=== PATIENT | female | born 1995 | race African-American/Black ===

== ENCOUNTER 2020-05-28 18:03 | Emergency (ER) | payer BC ==
--- NOTE | 2020-05-28 19:32 | EDM.PDOC ---
ED HPI GENERAL MEDICAL PROBLEM - General Chief Complaint: [employer] Problem Stated Complaint: [facility] Time Seen by Provider: 05/28/20 18:35 Source of Information: Reports: Patient History Limitations: Reports: No Limitations - History of Present Illness INITIAL COMMENTS - FREE TEXT/NARRATIVE: Patient is a 24-year-old female [facility] with complaints of acute left pelvic pain. She describes the pain as a sharp stabbing sensation. She states that the pain came out of nowhere. She was not doing anything exertional. She did have some nausea associated with this but no vomiting. She called EMS. States that pain improved significantly after about 30 minutes. The area is edge glue machine tender to palpation but not significantly painful at this time. Patient is 17 weeks . Denies any vaginal discharge or bleeding. She had an appointment with her [employer], Dr. Garcia, 2 days ago and said that everything has been going well. States that she has not felt the baby move so far this . She did have an early ultrasound completed and everything at that time was found to be normal. She is currently scheduled for her 20-week ultrasound on 17 June. Eyes any fever, chills, flank pain, dysuria, vomiting, or diarrhea. abd Pain Score (Numeric/FACES): 2 - Related Data Allergies Allergy/AdvReac Type Severity Reaction Status Date / Time No Known Allergies Allergy Verified 05/28/20 18:07 Home Meds: Home Meds Vits #93/Iron Fum/FA [ Formula Tablet] 1 tab PO DAILY 05/28/20 [History] Past Medical History - Past Health History Medical/Surgical History: Denies Medical/Surgical History [employer] History: Reports: Social & Family History - Tobacco Use Smoking Status *Q: Never Smoker - Recreational Drug Use Recreational Drug Use: No ED ROS GENERAL - Review of Systems Review Of Systems: See Below Constitutional: Reports: No Symptoms. Denies: Fever, Chills, Weakness HEENT: Reports: No Symptoms Respiratory: Reports: No Symptoms Cardiovascular: Reports: No Symptoms Endocrine: Reports: No Symptoms GI/Abdominal: Reports: No Symptoms : Reports: Other (left pelvic pain) Musculoskeletal: Reports: No Symptoms Skin: Reports: No Symptoms Neurological: Reports: No Symptoms Psychiatric: Reports: No Symptoms Hematologic/Lymphatic: Reports: No Symptoms Immunologic: Reports: No Symptoms ED EXAM - Physical Exam Exam: See Below General Appearance: Alert, WD/WN, No Apparent Distress Respiratory/Chest: No Respiratory Distress, Lungs Clear, Normal Breath Sounds, No Accessory Muscle Use, Chest Non-Tender Cardiovascular: Normal Peripheral Pulses, Regular Rate, Rhythm, No Edema, No Gallop, No JVD, No Murmur, No Rub GI/Abdominal Exam: Normal Bowel Sounds, Soft, No Organomegaly, No Distention, No Abnormal Bruit, No Mass, Pelvis Stable, Tender (mild left pelvic tenderness) Neurological: Alert, Oriented, CN II-XII Intact, Normal Cognition, Normal Gait, Normal Reflexes, No Motor/Sensory Deficits Psychiatric: Normal Affect, Normal Mood Skin Exam: Warm, Dry, Intact, Normal Color, No Rash Course - Vital Signs Last Recorded V/S: Last Vital Signs Temp 98 F 05/28/20 18:05 Pulse 84 05/28/20 18:05 Resp 19 05/28/20 18:05 BP 107/56 L 05/28/20 18:05 Pulse Ox 99 05/28/20 18:05 - Orders/Labs/Meds Labs: Laboratory Tests 05/28/20 05/28/20 05/28/20 Range/Units 19:21 19:21 20:19 WBC 9.43 (3.98-10.04) K/mm3 RBC 4.26 (3.98-5.22) M/mm3 Hgb 12.8 (11.2-15.7) gm/dl Hct 39.4 (34.1-44.9) % MCV 92.5 (79.4-94.8) fl MCH 30.0 (25.6-32.2) pg MCHC 32.5 (32.2-35.5) g/dl RDW Std Deviation 45.4 (36.4-46.3) fL Plt Count 215 (182-369) K/mm3 MPV 9.9 (9.4-12.3) fl Neut % (Auto) 84.2 H (34.0-71.1) % Lymph % (Auto) 9.7 L (19.3-51.7) % [place] % (Auto) 5.5 (4.7-12.5) % Eos % (Auto) 0.1 L (0.7-5.8) Baso % (Auto) 0.1 (0.1-1.2) % Neut # (Auto) 7.94 H (1.56-6.13) K/mm3 Lymph # (Auto) 0.91 L (1.18-3.74) K/mm3 [place] # (Auto) 0.52 H (0.24-0.36) K/mm3 Eos # (Auto) 0.01 L (0.04-0.36) K/mm3 Baso # (Auto) 0.01 (0.01-0.08) K/mm3 Manual Slide Review Abnormal smear Sodium 139 (136-145) mEq/L Potassium 3.9 (3.5-5.1) mEq/L Chloride 103 (98-107) mEq/L Carbon Dioxide 26 (21-32) mEq/L Anion Gap 13.9 (5-15) BUN 8 (7-18) mg/dL Creatinine 0.6 (0.55-1.02) mg/dL Est Cr Clr Drug Dosing 135.35 mL/min Estimated GFR (MDRD) > 60 (>60) mL/min BUN/Creatinine Ratio 13.3 L (14-18) Glucose 79 (74-106) mg/dL Calcium 9.5 (8.5-10.1) mg/dL Total Bilirubin 0.3 (0.2-1.0) mg/dL AST 31 (15-37) U/L ALT 35 (14-59) U/L Alkaline Phosphatase 65 (46-116) U/L C-Reactive Protein 0.7 (<1.0) mg/dL Total Protein 7.6 (6.4-8.2) g/dl Albumin 3.1 L (3.4-5.0) g/dl Globulin 4.5 gm/dL Albumin/Globulin Ratio 0.7 L (1-2) HCG, Quant 65978.0 mIU/mL Urine Color Light yellow (Yellow) Urine Appearance Clear (Clear) Urine pH 8.0 (5.0-8.0) Ur Specific [place] 1.020 (1.005-1.030) Urine Protein Negative (Negative) Urine Glucose (UA) Negative (Negative) Urine Ketones Negative (Negative) Urine Occult Blood Negative (Negative) Urine Nitrite Negative (Negative) Urine Bilirubin Negative (Negative) Urine Urobilinogen 0.2 (0.2-1.0) Ur Leukocyte Esterase Trace H (Negative) Urine RBC 0-5 (0-5) /hpf Urine WBC 5-10 H (0-5) /hpf Ur Squamous Epith Cells 5-10 H (0-5) /hpf Urine Bacteria Few (FEW) /hpf Urine Mucus Few (FEW) /hpf - Re-Assessments/Exams Free Text/Narrative Re-Assessment/Exam: Patient is a 24-year-old female 17 weeks gestation who presents to the emergency department with acute onset of stabbing left lower pelvic pain. Last approximate 30 minutes and had essentially resolved by the time of my exam. She does have some slight tenderness in that area still but it is not not painful any longer. Denies any vaginal bleeding or discharge. She did have some nausea initially when the pain occurred but this has since resolved as well. I have ordered a CBC, CMP, CRP, urinalysis, quantitative hCG, and a OB ultrasound. 05/28/20 20:39 Hematology was grossly unremarkable. hCG was appropriately elevated at 21,823. Urinalysis showed trace leukocyte esterase, 5-10 WBCs, 5-10 squamous epithelials suggestive likely contamination. Ultrasound revealed a single viable intrauterine gestation at 17 weeks 0 days. There is no abnormalities of gestation or maternal pelvis noted. Called and spoke with patient's [employer], Dr. Garcia. She had no further recommendations for work-up for this patient. She did not recommend that we start antibiotics for her urine at this time. We will send urine for culture and begin antibiotics if indicated. Patient is anxious to be discharged, feels good, and has had no recurrence of pain. We will let her go home at this time with instructions to return if she should experience recurrence of pain or any other symptoms of concern. Discharge instructions as documented. Departure - Departure Time of Disposition: 20:43 Disposition: Home, Self-Care 01 Condition: Good Clinical Impression: Pelvic pain - Discharge Information *PRESCRIPTION DRUG MONITORING PROGRAM REVIEWED*: No *COPY OF PRESCRIPTION DRUG MONITORING REPORT IN PATIENT IOANA: No Instructions: Pelvic Pain, Female, [id number] Referrals: Jany Hernandez MD [Primary Care Provider] - Forms: ED Department Discharge Additional Instructions: You were seen in the emergency department this evening for acute left pelvic pain that lasted about 30 minutes. Your work-up included blood work, urinalysis, and a pelvic ultrasound. Your work-up was found to be overall normal. The ultrasound showed a single intrauterine gestation measuring about 17 weeks. There was a small amount of bacteria present in your urine which is likely contamination, however this has been sent for culture. If this should grow to bacteria requiring treatment with antibiotics, you will be notified and a prescription will be called in. Recommend that you rest and take it easy for the rest of the evening. Make sure you are getting adequate amount of fluid. If you should experience a recurrence of pain or any new or worsening symptoms of concern, please not hesitate to return to the emergency department for reevaluation. Sepsis Event Note (ED) - Evaluation Sepsis Screening Result: No Definite Risk
== END 2020-05-28 20:52 | disposition home or self-care (01) ==
LOC: JD.ED 18:03
DX: O99.891 Other specified diseases and conditions complicating pregnancy (principal); R10.2 Pelvic and perineal pain; Z3A.17 17 weeks gestation of pregnancy
CPT/HCPCS: 36415; 76815; 80053; 81001; 84702; 85025; 86140; 87086; 87088; 99285-25

== ENCOUNTER 2020-11-10 07:15 | Inpatient (IN) | payer BC ==
[2020-11-10] MEDS ORDERED: Sodium Chloride 0.9% 10 ML Syringe FLUSH PRN (07:21)
[2020-11-10] MEDS ORDERED: Nalbuphine 10 MG/1 ML Vial IVPUSH PRN (07:21)
[2020-11-10] MEDS ORDERED: Ondansetron 4 MG/2 ML SDV IVPUSH PRN ×2 (07:21→11:28)
[2020-11-10] MEDS ORDERED: Misoprostol 25 MCG (1/4 of 100 MCG) Tab VAG PRN (07:26)
[2020-11-10] MEDS ORDERED: Oxytocin/Lactated Ringers 10 UNIT/1,000 ML BAG IV SCH ×2 (07:30)
--- NOTE | 2020-11-10 07:35 | PCM.LDHP ---
L&D History of Present Illness - General Date of Service: 11/10/20 Admit Problem/Dx: Patient Status Order with Admit Dx/Problem 11/10/20 07:22 Patient Status [ADT] Routine Admission Diagnosis/Problem Admission Diagnosis/Problem Normal Source of Information: Patient History Limitations: Reports: No Limitations - History of Present Illness Introduction:: 25 y/o at 40 6/7 wks presents for post dates IOL. Doing well today. 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 Para: 0 Social & Family History - Tobacco Use Tobacco Use Status *Q: Never Tobacco User - Alcohol Use Alcohol Use History: No - Recreational Drug Use Recreational Drug Use: No H&P Review of Systems - Review of Systems: Review Of Systems: See Below General: Reports: No Symptoms Pulmonary: Reports: No Symptoms Cardiovascular: Reports: No Symptoms Gastrointestinal: Reports: No Symptoms Genitourinary: Reports: No Symptoms Musculoskeletal: Reports: No Symptoms Neurological: Reports: No Symptoms L&D Exam - Exam Exam: See Below - OB Specific Contraction Intensity: Irritability Movement: Active Heart Tones: Present Heart Tones per Min: 140 Heart Rate (FHR) Variability: Moderate (6-25 bmp) Presentation: Vertex - Lombardo Score Lombardo Score Cervix Position: Posterior Lombardo Score Consistency: Medium Lombardo Score Effacement: 0-30% Lombardo Score Dilation: Closed Lombardo Score Infant's Station: -2 Lombardo Score Total: 2 - Exam General: Alert, Oriented, Cooperative Lungs: Clear to Auscultation, Normal Respiratory Effort Cardiovascular: Regular Rate, Regular Rhythm GI/Abdominal Exam: Soft, Non-Tender Genitourinary: Normal external exam Extremities: Normal Inspection Skin: Warm, Dry, Intact - Patient Data Result Diagrams: 11/10/20 07:29 - Problem List (1) 41 weeks gestation of SNOMED Code(s): 30740777 ICD Code: Z3A.41 - 41 WEEKS GESTATION OF Status: Acute Current Visit: Yes Problem List Initiated/Reviewed/Updated: Yes Orders Last 24hrs: Active Orders 24 hr Category Date Time Status Patient Status [ADT] Routine ADT 11/10/20 07:22 Active Communication Order [RC] ASDIRECTED Care 11/10/20 07:22 Active Communication Order [RC] ASDIRECTED Care 11/10/20 07:22 Active Communication Order [RC] ASDIRECTED Care 11/10/20 07:22 Active Heart Tones [RC] ASDIRECTED Care 11/10/20 07:22 Active Non Stress Test [RC] PER UNIT ROUTINE Care 11/10/20 07:22 Active Notify Provider [RC] ASDIRECTED Care 11/10/20 07:22 Active Notify Provider [RC] PRN Care 11/10/20 07:22 Active Peripheral IV Care [RC] . DIRECTED Care 11/10/20 07:22 Active Up ad Clari [RC] ASDIRECTED Care 11/10/20 07:22 Active Vaginal Exam [RC] ASDIRECTED Care 11/10/20 07:22 Active Vital Signs [RC] ASDIRECTED Care 11/10/20 07:22 Active Regular Diet [DIET] Diet 11/10/20 Breakfast Active CBC W/O DIFF,HEMOGRAM [HEME] Routine Lab 11/10/20 07:21 Ordered CORONAVIRUS COVID-19 YESSY [MOLEC] Stat Lab 11/10/20 07:24 Ordered RAPID PLASMA REAGIN,RPR [CHEM] Routine Lab 11/10/20 07:22 Ordered TYPE AND SCREEN [BBK] Routine Lab 11/10/20 07:21 Ordered Lactated Ringers [Ringers, Lactated] 1,000 ml Med 11/10/20 07:30 Active IV ASDIRECTED Nalbuphine [Nubain] Med 11/10/20 07:21 Active 10 mg IVPUSH Q2H PRN Ondansetron [Zofran] Med 11/10/20 07:21 Active 4 mg IVPUSH Q4H PRN Oxytocin/Lactated Ringers [Pitocin in LR 10 Units/1,000 Med 11/10/20 07:30 Active ML] 10 unit in 1,000 ml IV .CONTINUOUS Oxytocin/Lactated Ringers [Pitocin in LR 10 Units/1,000 Med 11/10/20 07:30 Active ML] 10 unit in 1,000 ml IV TITRATE Sodium Chloride 0.9% [Saline Flush] Med 11/10/20 07:21 Active 10 ml FLUSH ASDIRECTED PRN miSOPROStoL [Cytotec] Med 11/10/20 07:26 Active 25 mcg VAG Q4H PRN Electronic Heart Tones Ext w TOCO [WOMSER] Oth 11/10/20 07:22 Ordered Routine Medication Administration Instruction [OM.PC] Ot 11/10/20 07:30 Ordered ASDIRECTED Peripheral IV Insertion Adult [OM.PC] Routine Ot 11/10/20 07:22 Ordered Medication Orders Oxytocin/Lactated Ringer's (Pitocin In Lr 10 Units/1,000 Ml) 10 unit in 1,000 mls @ 12 mls/hr IV TITRATE MARIA TERESA; Protocol Oxytocin/Lactated Ringer's (Pitocin In Lr 10 Units/1,000 Ml) 10 unit in 1,000 mls @ 500 mls/hr IV .CONTINUOUS MARIA TERESA Lactated Ringer's (Ringers, Lactated) 1,000 mls @ 40 mls/hr IV ASDIRECTED MARIA TERESA Misoprostol (Misoprostol 25 Mcg (1/4 Of 100 Mcg) Tab) 25 mcg VAG Q4H PRN PRN Reason: cervical ripening Nalbuphine HCl (Nalbuphine 10 Mg/1 Ml Vial) 10 mg IVPUSH Q2H PRN PRN Reason: Pain Ondansetron HCl (Ondansetron 4 Mg/2 Ml Sdv) 4 mg IVPUSH Q4H PRN PRN Reason: Nausea/Vomiting Sodium Chloride (Sodium Chloride 0.9% 10 Ml Syringe) 10 ml FLUSH ASDIRECTED PRN PRN Reason: Keep Vein Open Stop: 11/10/20 12:00 Assessment/Plan Comment:: * Labs done * GBS negative * Cytotec to start IOL, Likely pitocin/AROM in time * Pain management per patient preference * Anticipate
[2020-11-10] MEDS ORDERED: ePHEDrine 50 MG/ML SDV IVPUSH PRN (11:28)
[2020-11-10] MEDS ORDERED: fentaNYL 100 MCG/2 ML SDV EPIDUR PRN (11:28)
--- NOTE | 2020-11-10 11:31 | PCM.PREANE ---
Preanesthetic Assessment - Procedure Proposed Procedure: Epidural - Anesthesia/Transfusion/Family Hx Anesthesia History: No Prior Anesthesia Family History of Anesthesia Reaction: No Transfusion History: No Prior Transfusion(s) Intubation History: Unknown - Review of Systems General: No Symptoms Pulmonary: No Symptoms Cardiovascular: No Symptoms Gastrointestinal: No Symptoms Neurological: No Symptoms Other: Reports: None - Physical Assessment NPO Status Date: 11/10/20 NPO Status Time: 12:15 Vital Signs: Last Vital Signs Temp 36.9 C 11/10/20 07:22 Pulse 90 11/10/20 07:22 Resp 15 11/10/20 07:22 BP 115/73 11/10/20 07:22 Pulse Ox 97 11/10/20 07:22 Height: 1.68 m Weight: 82.1 kg ASA Class: 2 Mental Status: Alert & Oriented x3 Airway Class: Mallampati = 2 Dentition: Reports: Normal Dentition, Caries Thyro-Mental Finger Breadths: 3 Mouth Opening Finger Breadths: 3 ROM/Head Extension: Full Lungs: Clear to Auscultation, Normal Respiratory Effort Cardiovascular: Regular Rate, Regular Rhythm, No Murmurs - Lab Values: Laboratory Last Values WBC 6.70 K/mm3 (3.98-10.04) 11/10/20 07:29 RBC 4.26 M/mm3 (3.98-5.22) 11/10/20 07:29 Hgb 12.3 gm/dl (11.2-15.7) 11/10/20 07:29 Hct 39.5 % (34.1-44.9) 11/10/20 07:29 MCV 92.7 fl (79.4-94.8) 11/10/20 07:29 MCH 28.9 pg (25.6-32.2) 11/10/20 07:29 MCHC 31.1 g/dl (32.2-35.5) L 11/10/20 07:29 RDW Std Deviation 46.1 fL (36.4-46.3) 11/10/20 07:29 Plt Count 244 K/mm3 (182-369) 11/10/20 07:29 MPV 9.8 fl (9.4-12.3) 11/10/20 07:29 SARS-CoV-2 RNA (YESSY) Negative (NEGATIVE) 11/10/20 08:05 Blood Type O POSITIVE 11/10/20 07:29 Gel Antibody Screen Negative 11/10/20 07:29 Above labs reviewed and noted and within acceptable ranges to proceed with epidural if desired. 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: - SUBSTANCE USE Tobacco Use Status *Q: Never Tobacco User Second Hand Smoke Exposure: No Recreational Drug Use History: No - HOME MEDS Home Medications: Home Meds Vits #93/Iron Fum/FA [ Formula Tablet] 1 tab PO DAILY 05/28/20 [History] - CURRENT (IN HOUSE) MEDS Current Meds: Current Medications Oxytocin/Lactated Ringer's (Pitocin In Lr 10 Units/1,000 Ml) 10 unit in 1,000 mls @ 12 mls/hr IV TITRATE MARIA TERESA; Protocol Oxytocin/Lactated Ringer's (Pitocin In Lr 10 Units/1,000 Ml) 10 unit in 1,000 mls @ 500 mls/hr IV .CONTINUOUS MARIA TERESA Lactated Ringer's (Ringers, Lactated) 1,000 mls @ 40 mls/hr IV ASDIRECTED MARIA TERESA Misoprostol (Misoprostol 25 Mcg (1/4 Of 100 Mcg) Tab) 25 mcg VAG Q4H PRN PRN Reason: cervical ripening Last Admin: 11/10/20 09:02 Dose: 25 mcg Documented by: Nalbuphine HCl (Nalbuphine 10 Mg/1 Ml Vial) 10 mg IVPUSH Q2H PRN PRN Reason: Pain Ondansetron HCl (Ondansetron 4 Mg/2 Ml Sdv) 4 mg IVPUSH Q4H PRN PRN Reason: Nausea/Vomiting Sodium Chloride (Sodium Chloride 0.9% 10 Ml Syringe) 10 ml FLUSH ASDIRECTED PRN PRN Reason: Keep Vein Open Stop: 11/10/20 12:00
--- NOTE | 2020-11-10 12:47 | PCM.PNLD ---
Labor Progress Note - VS & Meds Vital Signs: Last Vital Signs Temp 36.9 C 11/10/20 07:22 Pulse 90 11/10/20 07:22 Resp 15 11/10/20 07:22 BP 115/73 11/10/20 07:22 Pulse Ox 97 11/10/20 07:22 Active Medications: Current Medications Ephedrine Sulfate (Ephedrine 50 Mg/Ml Sdv) 5 mg IVPUSH ASDIRECTED PRN PRN Reason: Hypotension Fentanyl (Fentanyl 100 Mcg/2 Ml Sdv) 100 mcg EPIDUR Q3H PRN PRN Reason: Pain Fentanyl/Bupivacaine HCl (Bupivacaine/Fentanyl/Ns 100 Ml Bag) 100 ml EPIDUR ASDIRECTED MARIA TERESA Oxytocin/Lactated Ringer's (Pitocin In Lr 10 Units/1,000 Ml) 10 unit in 1,000 mls @ 12 mls/hr IV TITRATE MARIA TERESA; Protocol Oxytocin/Lactated Ringer's (Pitocin In Lr 10 Units/1,000 Ml) 10 unit in 1,000 mls @ 500 mls/hr IV .CONTINUOUS MARIA TERESA Lactated Ringer's (Ringers, Lactated) 1,000 mls @ 40 mls/hr IV ASDIRECTED MARIA TERESA Miscellaneous Medication (Phenylephrine Hcl In 0.9% Nacl 1 Mg/10 Ml Syringe) 0.1 mg IVPUSH Q10M PRN PRN Reason: Hypotension Misoprostol (Misoprostol 25 Mcg (1/4 Of 100 Mcg) Tab) 25 mcg VAG Q4H PRN PRN Reason: cervical ripening Last Admin: 11/10/20 09:02 Dose: 25 mcg Documented by: Nalbuphine HCl (Nalbuphine 10 Mg/1 Ml Vial) 10 mg IVPUSH Q2H PRN PRN Reason: Pain Ondansetron HCl (Ondansetron 4 Mg/2 Ml Sdv) 4 mg IVPUSH Q4H PRN PRN Reason: Nausea/Vomiting Ondansetron HCl (Ondansetron 4 Mg/2 Ml Sdv) 4 mg IVPUSH ONETIME PRN PRN Reason: Nausea/Vomiting Discontinued Medications Sodium Chloride (Sodium Chloride 0.9% 10 Ml Syringe) 10 ml FLUSH ASDIRECTED PRN PRN Reason: Keep Vein Open Stop: 11/10/20 12:00 - Uterine Contractions Uterine Monitoring Mode: External [place] Contraction Intensity: Mild Uterine Resting Tone: Soft - Monitoring Monitor Mode: External Ultrasound Heart Rate (FHR) Baseline: 140 Heart Rate (FHR) Variability: Moderate (6-25 bmp) Accelerations: Present, 15x15 Decelerations: Variable (isolated) Strip Review: Category II - Vaginal Exam Dilation (cm): 0.5 - Labor Progress (Free Text) Labor Progress: Patient received 1st dose of cytotec at 0900. [place] every 1-2 minutes on the monitor, but only rates these at a 1/10. Will defer next dose for about an hour or so. If still feeling comfortable will place 2nd dose. If concerns reviewed could switch to pitocin and larson bulb. Patient and her agree.
[2020-11-10] MEDS: Lactated Ringers 1,000 ML IV SCH ×4 (14:15→23:44)
[2020-11-10] MEDS: Bupivacaine/fentaNYL/NS 100 ML Bag EPIDUR SCH (19:49)
--- NOTE | 2020-11-10 20:42 | PCM.PNLD ---
Labor Progress Note - VS & Meds Vital Signs: Last Vital Signs Temp 36.9 C 11/10/20 07:22 Pulse 90 11/10/20 07:22 Resp 15 11/10/20 07:22 BP 115/73 11/10/20 07:22 Pulse Ox 97 11/10/20 07:22 Active Medications: Current Medications Ephedrine Sulfate (Ephedrine 50 Mg/Ml Sdv) 5 mg IVPUSH ASDIRECTED PRN PRN Reason: Hypotension Fentanyl (Fentanyl 100 Mcg/2 Ml Sdv) 100 mcg EPIDUR Q3H PRN PRN Reason: Pain Last Admin: 11/10/20 19:49 Dose: 100 mcg Documented by: Fentanyl/Bupivacaine HCl (Bupivacaine/Fentanyl/Ns 100 Ml Bag) 100 ml EPIDUR ASDIRECTED MARIA TERESA Last Admin: 11/10/20 19:49 Dose: 100 ml Documented by: Oxytocin/Lactated Ringer's (Pitocin In Lr 10 Units/1,000 Ml) 10 unit in 1,000 mls @ 12 mls/hr IV TITRATE MARIA TERESA; Protocol Last Titration: 11/10/20 20:36 Dose: 6 munits/min, 36 mls/hr Documented by: Oxytocin/Lactated Ringer's (Pitocin In Lr 10 Units/1,000 Ml) 10 unit in 1,000 mls @ 500 mls/hr IV .CONTINUOUS MARIA TERESA Lactated Ringer's (Ringers, Lactated) 1,000 mls @ 40 mls/hr IV ASDIRECTED MARIA TERESA Last Admin: 11/10/20 19:46 Dose: 999 mls/hr Documented by: Miscellaneous Medication (Phenylephrine Hcl In 0.9% Nacl 1 Mg/10 Ml Syringe) 0.1 mg IVPUSH Q10M PRN PRN Reason: Hypotension Misoprostol (Misoprostol 25 Mcg (1/4 Of 100 Mcg) Tab) 25 mcg VAG Q4H PRN PRN Reason: cervical ripening Last Admin: 11/10/20 09:02 Dose: 25 mcg Documented by: Nalbuphine HCl (Nalbuphine 10 Mg/1 Ml Vial) 10 mg IVPUSH Q2H PRN PRN Reason: Pain Last Admin: 11/10/20 17:32 Dose: 10 mg Documented by: Ondansetron HCl (Ondansetron 4 Mg/2 Ml Sdv) 4 mg IVPUSH Q4H PRN PRN Reason: Nausea/Vomiting Ondansetron HCl (Ondansetron 4 Mg/2 Ml Sdv) 4 mg IVPUSH ONETIME PRN PRN Reason: Nausea/Vomiting Discontinued Medications Sodium Chloride (Sodium Chloride 0.9% 10 Ml Syringe) 10 ml FLUSH ASDIRECTED PRN PRN Reason: Keep Vein Open Stop: 11/10/20 12:00 - Uterine Contractions Uterine Monitoring Mode: External [place] Contraction Intensity: Moderate to Strong Uterine Resting Tone: Soft - Monitoring Monitor Mode: External Ultrasound Heart Rate (FHR) Baseline: 130 Heart Rate (FHR) Variability: Moderate (6-25 bmp) Accelerations: Present, 15x15 Decelerations: None Strip Review: Category I - Vaginal Exam Dilation (cm): 3 Effacement (Percent): 75 Station: -2 Cervical Position: Midposition - Labor Progress (Free Text) Labor Progress: Doing well. Just received epidural. Stout bulb removed. Pitocin at 10 - con tractions becoming very close. Dropped to 6. AROM performed with release of meconium stained fluid. Continue present management
[2020-11-11] MEDS: Lactated Ringers 1,000 ML IV SCH ×2 (03:11→04:26)
[2020-11-11] MEDS: Bupivacaine/fentaNYL/NS 100 ML Bag EPIDUR SCH ×2 (04:04→11:25)
--- NOTE | 2020-11-11 06:52 | PCM.PNLD ---
Labor Progress Note - VS & Meds Vital Signs: Last Vital Signs Temp 36.9 C 11/10/20 07:22 Pulse 90 11/10/20 07:22 Resp 15 11/10/20 07:22 BP 115/73 11/10/20 07:22 Pulse Ox 97 11/10/20 07:22 Active Medications: Current Medications Ephedrine Sulfate (Ephedrine 50 Mg/Ml Sdv) 5 mg IVPUSH ASDIRECTED PRN PRN Reason: Hypotension Fentanyl (Fentanyl 100 Mcg/2 Ml Sdv) 100 mcg EPIDUR Q3H PRN PRN Reason: Pain Last Admin: 11/10/20 19:49 Dose: 100 mcg Documented by: Fentanyl/Bupivacaine HCl (Bupivacaine/Fentanyl/Ns 100 Ml Bag) 100 ml EPIDUR ASDIRECTED MARIA TERESA Last Admin: 11/11/20 04:04 Dose: 100 ml Documented by: Oxytocin/Lactated Ringer's (Pitocin In Lr 10 Units/1,000 Ml) 10 unit in 1,000 mls @ 12 mls/hr IV TITRATE MARIA TERESA; Protocol Last Titration: 11/11/20 03:42 Dose: 4 munits/min, 24 mls/hr Documented by: Oxytocin/Lactated Ringer's (Pitocin In Lr 10 Units/1,000 Ml) 10 unit in 1,000 mls @ 500 mls/hr IV .CONTINUOUS MARIA TERESA Lactated Ringer's (Ringers, Lactated) 1,000 mls @ 40 mls/hr IV ASDIRECTED MARIA TERESA Last Admin: 11/11/20 04:26 Dose: 999 mls/hr Documented by: Miscellaneous Medication (Phenylephrine Hcl In 0.9% Nacl 1 Mg/10 Ml Syringe) 0.1 mg IVPUSH Q10M PRN PRN Reason: Hypotension Misoprostol (Misoprostol 25 Mcg (1/4 Of 100 Mcg) Tab) 25 mcg VAG Q4H PRN PRN Reason: cervical ripening Last Admin: 11/10/20 09:02 Dose: 25 mcg Documented by: Nalbuphine HCl (Nalbuphine 10 Mg/1 Ml Vial) 10 mg IVPUSH Q2H PRN PRN Reason: Pain Last Admin: 11/10/20 17:32 Dose: 10 mg Documented by: Ondansetron HCl (Ondansetron 4 Mg/2 Ml Sdv) 4 mg IVPUSH Q4H PRN PRN Reason: Nausea/Vomiting Ondansetron HCl (Ondansetron 4 Mg/2 Ml Sdv) 4 mg IVPUSH ONETIME PRN PRN Reason: Nausea/Vomiting Discontinued Medications Sodium Chloride (Sodium Chloride 0.9% 10 Ml Syringe) 10 ml FLUSH ASDIRECTED PRN PRN Reason: Keep Vein Open Stop: 11/10/20 12:00 - Uterine Contractions Uterine Monitoring Mode: External Elbe Contraction Intensity: Moderate to Strong Uterine Resting Tone: Soft - Monitoring Monitor Mode: External Ultrasound Heart Rate (FHR) Baseline: 140 Heart Rate (FHR) Variability: Moderate (6-25 bmp) Accelerations: Present, 15x15 Strip Review: Category I - Vaginal Exam Dilation (cm): 3 Effacement (Percent): 75 Station: -2 Cervical Position: Midposition - Labor Progress (Free Text) Labor Progress: Patient overall has done well overnight. Pitocin currently at 4. Patient with frequent contractions on monitor. IUPC placed to allow better titration of contractions. Pitocin turned up to 6.
[2020-11-11] MEDS ORDERED: Lidocaine 2% with EPINEPHrine 1:200,000 20 ML SDV ONE (11:00)
[2020-11-11] MEDS ORDERED: Lidocaine 1.5% with EPINEPHrine 1:200,000 5 ML Amp ONE (11:00)
[2020-11-11] MEDS ORDERED: Azithromycin 500 MG in Sodium Chloride 0.9% 250 ML IV ONE (11:32)
[2020-11-11] MEDS ORDERED: Metoclopramide 10 MG/2 ML SDV IVPUSH ONE (11:32)
[2020-11-11] MEDS ORDERED: ceFAZolin 2 GM in Premix Bag 1 BAG IV ONE (11:32)
[2020-11-11] MEDS ORDERED: Citric Acid/Sodium Citrate Solution 30 ML Cup PO ONE (11:32)
--- NOTE | 2020-11-11 11:47 | PCM.SN.2 ---
- Free Text/Narrative Note: 1130 SVE by myself shows exam similar to this AM and also similar to night time checks. Reviewed with patient. MVUs do seem to be adequate. Can try to titrate a little, but not much room to move up. Ultimately patient would like to monitor a few more hours as long as safe for baby. Agreed with this plan. Luciana Nicholas MD
[2020-11-11] MEDS ORDERED: Morphine PF 10 MG/10 ML SDV ONE (13:43)
[2020-11-11] MEDS ORDERED: fentaNYL 100 MCG/2 ML SDV ONE (13:43)
[2020-11-11] MEDS ORDERED: Citric Acid/Sodium Citrate Solution 30 ML Cup ONE (13:50)
[2020-11-11] MEDS ORDERED: Metoclopramide 10 MG/2 ML SDV ONE (13:50)
[2020-11-11] MEDS ORDERED: ceFAZolin 1 GM Vial ONE (14:37)
[2020-11-11] MEDS ORDERED: Lactated Ringers 1,000 ML ONE (14:43)
[2020-11-11] MEDS ORDERED: Oxytocin 10 Units/1 ML SDV ONE (14:52)
[2020-11-11] MEDS ORDERED: Ketorolac 30 MG/ML SDV ONE (15:12)
[2020-11-11] MEDS ORDERED: Ondansetron 4 MG/2 ML SDV ONE (15:13)
[2020-11-11] MEDS ORDERED: fentaNYL 100 MCG/2 ML SDV IVPUSH PRN (15:26)
[2020-11-11] MEDS ORDERED: Meperidine 50 MG/ML Vial IVPUSH PRN (15:26)
[2020-11-11] MEDS ORDERED: Ondansetron 4 MG/2 ML SDV IVPUSH PRN (15:26)
[2020-11-11] MEDS ORDERED: diphenhydrAMINE 50 MG/ML SDV IVPUSH PRN ×2 (15:26→18:12)
--- NOTE | 2020-11-11 15:34 | PCM.POSTAN ---
POST ANESTHESIA ASSESSMENT - MENTAL STATUS Mental Status: Alert, Oriented - VITAL SIGNS Vital Signs: Last Vital Signs Temp 98.5 F 11/10/20 07:22 Pulse 90 11/10/20 07:22 Resp 15 11/10/20 07:22 BP 115/73 11/10/20 07:22 Pulse Ox 97 11/10/20 07:22 1527 99/59/96% 87 298.0 - RESPIRATORY Respiratory Status: Respiratory Rate WNL, Airway Patent, O2 Saturation Stable - CARDIOVASCULAR CV Status: Pulse Rate WNL, Blood Pressure Stable - GASTROINTESTINAL GI Status: No Symptoms - PAIN Pain Score: 0 - POST OP HYDRATION Hydration Status: Adequate & Stable
--- NOTE | 2020-11-11 17:05 | PCM.OPNOTE ---
- General Post-Op/Procedure Note Date of Surgery/Procedure: 11/11/20 Operative Procedure(s): Primary low transverse Findings: Baby boy in vertex, ROP presentation. Weight of 8 lbs 3 oz. APGARS of 8 & 9. Normal appearance of the uterus, fallopian tubes, and ovaries Pre Op Diagnosis: 41 0/7 wks. Failed IOL, FTP in 1st stage Post-Op Diagnosis: Same Anesthesia Technique: Epidural Primary Surgeon: Luciana Nicholas Secondary Surgeon: Jany Hernandez Anesthesia Provider: Manolo Son Reason Roof Truss Machine Tender Was Necessary: Speed, safety of procedure Pathology: Cord blood collected. Placenta discarded Fluid Replacement, Intraop: 1,500 Output, Urine Amount: 100 EBL in mLs: 900 Complications: None Condition: Good Free Text/Narrative:: The risks, benefits, indications, potential complications, and alternatives were explained to the patient and informed consent obtained. After induction of anesthesia, the patient was placed in a supine position and then draped and prepped in the usual sterile manner. A Pfannenstiel incision was made and carried down through the subcutaneous tissue to the fascia. Fascial incision was made and extended transversely. The fascia was from the underlying rectus tissue superiorly and inferiorly. The peritoneum was identified and entered. Peritoneal incision was extended longitudinally. The utero-vesical peritoneal reflection was incised transversely and the bladder flap was bluntly freed from the lower uterine segment. A low transverse uterine incision was made sharply with a scalpel and extended bluntly in a cephalocaudad direction. A baby boy was delivered from a vertex presentation with APGARS as above. After the umbilical cord was clamped and cut cord blood was obtained for evaluation. The placenta was removed intact and appeared normal. The uterus was exteriorized and cleared of clots. The uterine outline, tubes and ovaries appeared normal. The uterine incision was closed with running locked sutures of 0 Vicryl. Slight bleeding noted at left angle and so additional locking sutures placed at this site. Hemostasis was obtained then with a second imbricating layer of 0 Vicryl. The uterus was then placed back into the abdomen. The infracolic gutters were cleared of blood clots. Slight oozing noted and so Fabrizio Seal placed across the hysterotomy The fascia was then reapproximated with running sutures of 0 Vicryl. The subcutaneous tissue was irrigated with sterile warm normal saline, hemostasis obtained with cautery. This layer was also closed with a running 0 Vicryl. The skin was reapproximated with running Subcuticular 4-0 Monocryl sutures and sealed with Dermabond. Instrument, sponge, and needle counts were correct p rior the abdominal closure and at the conclusion of the case.
[2020-11-11] MEDS ORDERED: Dextrose 5%-Lactated Ringers 1,000 ML IV SCH (18:12)
[2020-11-11] MEDS ORDERED: Naloxone 0.4 MG/ML SDV IVPUSH PRN (18:12)
[2020-11-11] MEDS ORDERED: Acetaminophen/oxyCODONE 325-5 MG Tab PO PRN (18:12)
[2020-11-11] MEDS: Ketorolac 30 MG/ML SDV IVPUSH SCH (21:19)
[2020-11-12] MEDS: Ketorolac 30 MG/ML SDV IVPUSH SCH ×2 (05:10→10:31)
--- NOTE | 2020-11-12 07:40 | PCM48HPAN ---
Post Anesthesia Note - EVALUATION WITHIN 48HRS OF ANESTHETIC Vital Signs in Normal Range: Yes Patient Participated in Evaluation: Yes Respiratory Function Stable: Yes Airway Patent: Yes Cardiovascular Function Stable: Yes Hydration Status Stable: Yes Pain Control Satisfactory: Yes Nausea and Vomiting Control Satisfactory: Yes Mental Status Recovered: Yes Vital Signs: Last Vital Signs Temp 37.2 C 11/12/20 04:35 Pulse 113 H 11/12/20 04:35 Resp 18 11/12/20 07:00 BP 113/66 11/12/20 04:35 Pulse Ox 99 11/12/20 07:00
--- NOTE | 2020-11-12 08:22 | PCM.PNPP ---
- General Info Date of Service: 11/12/20 Functional Status: Reports: Pain Controlled, Tolerating Diet, Ambulating - Review of Systems General: Reports: No Symptoms Pulmonary: Reports: No Symptoms Cardiovascular: Reports: No Symptoms Gastrointestinal: Reports: Abdominal Pain (managed with medications ) Genitourinary: Reports: No Symptoms Musculoskeletal: Reports: No Symptoms - Patient Data Vital Signs - Most Recent: Last Vital Signs Temp 37.2 C 11/12/20 04:35 Pulse 113 H 11/12/20 04:35 Resp 18 11/12/20 07:00 BP 113/66 11/12/20 04:35 Pulse Ox 99 11/12/20 07:00 Weight - Most Recent: 82.1 kg I&O - Last 24 Hours: Intake & Output 11/11/20 11/12/20 11/12/20 22:59 06:59 14:59 Intake Total 2600 1000 Output Total 775 525 Balance 1828 475 Lab Results - Last 24 Hours: Laboratory Results - last 24 hr 11/10/20 11/12/20 Range/Units 07:29 05:31 WBC 11.93 H (3.98-10.04) K/mm3 RBC 3.28 L (3.98-5.22) M/mm3 Hgb 9.5 L D (11.2-15.7) gm/dl Hct 30.7 L (34.1-44.9) % MCV 93.6 (79.4-94.8) fl MCH 29.0 (25.6-32.2) pg MCHC 30.9 L (32.2-35.5) g/dl RDW Std Deviation 46.5 H (36.4-46.3) fL Plt Count 173 L (182-369) K/mm3 MPV 9.8 (9.4-12.3) fl RPR Non-reactive (NONREACTIVE) Med Orders - Current: Current Medications Diphenhydramine HCl (Diphenhydramine 50 Mg/Ml Sdv) 25 mg IVPUSH Q6H PRN PRN Reason: Pruritis Diphenhydramine HCl (Diphenhydramine 50 Mg/Ml Sdv) 25 mg IVPUSH Q6H PRN PRN Reason: Itching or Nausea Docusate Sodium (Docusate Sodium 100 Mg Cap) 100 mg PO Q12H PRN PRN Reason: Constipation Fentanyl (Fentanyl 100 Mcg/2 Ml Sdv) 50 mcg IVPUSH Q5M PRN PRN Reason: Pain Ibuprofen (Ibuprofen 600 Mg Tab) 600 mg PO Q6H PRN PRN Reason: mild pain or fever Ketorolac Tromethamine (Ketorolac 30 Mg/Ml Sdv) 30 mg IVPUSH Q6H [facility] TERESA Stop: 11/12/20 09:31 Last Admin: 11/12/20 05:10 Dose: 30 mg Documented by: Meperidine HCl (Meperidine 50 Mg/Ml Vial) 25 mg IVPUSH ONETIME PRN PRN Reason: Shivering Naloxone HCl (Naloxone 0.4 Mg/Ml Sdv) 0.1 mg IVPUSH SEECOMMENT PRN PRN Reason: Respiratory Depression Ondansetron HCl (Ondansetron 4 Mg/2 Ml Sdv) 4 mg IVPUSH ONETIME PRN PRN Reason: Nausea/Vomiting Oxycodone/Acetaminophen (Acetaminophen/Oxycodone 325-5 Mg Tab) 1 tab PO Q4H PRN PRN Reason: Pain (moderate 4-6) Oxycodone/Acetaminophen (Acetaminophen/Oxycodone 325-5 Mg Tab) 2 tab PO Q4H PRN PRN Reason: Pain (severe 7-10) Discontinued Medications Cefazolin Sodium (Cefazolin 1 Gm Vial) Confirm Administered Dose 2 gm .ROUTE .STK-MED ONE Stop: 11/11/20 14:38 Citric Acid/Sodium Citrate (Citric Acid/Sodium Citrate Solution 30 Ml Cup) 30 ml PO ONETIME ONE Stop: 11/11/20 11:33 Last Admin: 11/11/20 13:56 Dose: 30 ml Documented by: Citric Acid/Sodium Citrate (Citric Acid/Sodium Citrate Solution 30 Ml Cup) Confirm Administered Dose 30 ml .ROUTE .STK-MED ONE Stop: 11/11/20 13:51 Last Admin: 11/11/20 14:03 Dose: Not Given Documented by: Ephedrine Sulfate (Ephedrine 50 Mg/Ml Sdv) 5 mg IVPUSH ASDIRECTED PRN PRN Reason: Hypotension Fentanyl (Fentanyl 100 Mcg/2 Ml Sdv) 100 mcg EPIDUR Q3H PRN PRN Reason: Pain Last Admin: 11/10/20 19:49 Dose: 100 mcg Documented by: Fentanyl (Fentanyl 100 Mcg/2 Ml Sdv) Confirm Administered Dose 100 mcg .ROUTE .STK-MED ONE Stop: 11/11/20 13:44 Fentanyl/Bupivacaine HCl (Bupivacaine/Fentanyl/Ns 100 Ml Bag) 100 ml EPIDUR ASDIRECTED [facility] Last Admin: 11/11/20 11:25 Dose: 100 ml Documented by: Oxytocin/Lactated Ringer's (Pitocin In Lr 10 Units/1,000 Ml) 10 unit in 1,000 mls @ 12 mls/hr IV TITRATE MARIA TERESA; Protocol Last Titration: 11/11/20 12:40 Dose: 12 munits/min, 72 mls/hr Documented by: Oxytocin/Lactated Ringer's (Pitocin In Lr 10 Units/1,000 Ml) 10 unit in 1,000 mls @ 500 mls/hr IV .CONTINUOUS MARIA TERESA Lactated Ringer's (Ringers, Lactated) 1,000 mls @ 40 mls/hr IV ASDIRECTED [facility] Last Admin: 11/11/20 04:26 Dose: 999 mls/hr Documented by: Cefazolin Sodium/Dextrose 2 gm (/ Premix) 50 mls @ 100 mls/hr IV ONETIME ONE Stop: 11/11/20 12:01 Last Admin: 11/11/20 16:02 Dose: Not Given Documented by: Azithromycin 500 mg/ Sodium (Chloride) 250 mls @ 250 mls/hr IV ONETIME ONE Stop: 11/11/20 12:31 Last Admin: 11/11/20 13:51 Dose: 250 mls/hr Documented by: Lactated Ringer's (Ringers, Lactated) Confirm Administered Dose 1,000 mls @ as directed .ROUTE .STK-MED ONE Stop: 11/11/20 14:44 Dextrose/Lactated Ringer's (Dextrose 5%-Lactated Ringers) 1,000 mls @ 125 mls/hr IV ASDIRECTED [facility] Stop: 11/12/20 02:11 Ibuprofen (Ibuprofen 600 Mg Tab) 600 mg PO Q6H PRN PRN Reason: mild pain or fever Ketorolac Tromethamine (Ketorolac 30 Mg/Ml Sdv) Confirm Administered Dose 30 mg .ROUTE .STK-MED ONE Stop: 11/11/20 15:13 Metoclopramide HCl (Metoclopramide 10 Mg/2 Ml Sdv) 10 mg IVPUSH ONETIME ONE Stop: 11/11/20 11:33 Last Admin: 11/11/20 13:56 Dose: 10 mg Documented by: Metoclopramide HCl (Metoclopramide 10 Mg/2 Ml Sdv) Confirm Administered Dose 10 mg .ROUTE .STK-MED ONE Stop: 11/11/20 13:51 Last Admin: 11/11/20 14:03 Dose: Not Given Documented by: Miscellaneous Medication (Phenylephrine Hcl In 0.9% Nacl 1 Mg/10 Ml Syringe) 0.1 mg IVPUSH Q10M PRN PRN Reason: Hypotension Misoprostol (Misoprostol 25 Mcg (1/4 Of 100 Mcg) Tab) 25 mcg VAG Q4H PRN PRN Reason: cervical ripening Last Admin: 11/10/20 09:02 Dose: 25 mcg Documented by: Morphine Sulfate (Morphine Pf 10 Mg/10 Ml Sdv) Confirm Administered Dose 10 mg .ROUTE .STK-MED ONE Stop: 11/11/20 13:44 Nalbuphine HCl (Nalbuphine 10 Mg/1 Ml Vial) 10 mg IVPUSH Q2H PRN PRN Reason: Pain Last Admin: 11/10/20 17:32 Dose: 10 mg Documented by: Ondansetron HCl (Ondansetron 4 Mg/2 Ml Sdv) 4 mg IVPUSH Q4H PRN PRN Reason: Nausea/Vomiting Ondansetron HCl (Ondansetron 4 Mg/2 Ml Sdv) 4 mg IVPUSH ONETIME PRN PRN Reason: Nausea/Vomiting Last Admin: 11/11/20 08:04 Dose: 4 mg Documented by: Ondansetron HCl (Ondansetron 4 Mg/2 Ml Sdv) Confirm Administered Dose 4 mg .ROUTE .STK-MED ONE Stop: 11/11/20 15:14 Oxytocin (Oxytocin 10 Units/1 Ml Sdv) Confirm Administered Dose 20 unit .ROUTE .STK-MED ONE Stop: 11/11/20 14:53 Sodium Chloride (Sodium Chloride 0.9% 10 Ml Syringe) 10 ml FLUSH ASDIRECTED PRN PRN Reason: Keep Vein Open Stop: 11/10/20 12:00 - Interaction Infant Disposition, : Candia in Room with Family Interaction: Holding Feeding: Attempted ; Nursed Fair/Poor Support Person: - Recovery Exam Fundal Tone: Firm Fundal Level: 1 Fingerbreadths Above Umbilicus Fundal Placement: Midline Lochia Amount: Small Lochia Color: Rubra/Red Perineum Description: Intact, Minimal Bruising/Swelling Episiotomy/Laceration: None Bladder Status: Indwelling Catheter in Place Urinary Elimination: Indwelling Catheter - Exam General: Alert, Oriented, Cooperative Lungs: Clear to Auscultation, Normal Respiratory Effort Cardiovascular: Regular Rate, Regular Rhythm GI/Abdominal Exam: Soft, Tender (appropriate post op) Extremities: Normal Inspection Skin: Warm, Dry, Intact Wound/Incisions: Healing Well, No Drainage - Problem List & Annotations (1) 41 weeks gestation of SNOMED Code(s): 63883295 Code(s): Z3A.41 - 41 WEEKS GESTATION OF Status: Acute Current Visit: Yes (2) Failure to progress in first stage of labor SNOMED Code(s): 088193898 Code(s): XUI1551 - Status: Acute Current Visit: Yes (3) Occiput posterior presentation of fetus SNOMED Code(s): 24431882 Code(s): O64.0XX0 - OBSTRUCTED LABOR DUE TO INCMPL ROTATION OF HEAD, UNSP Status: Acute Current Visit: Yes Qualifiers: Fetus number: single or unspecified fetus Qualified Code(s): O64.0XX0 - Obstructed labor due to incomplete rotation of head, not applicable or unspecified (4) S/P primary low transverse SNOMED Code(s): 929931286, 40172121, 132739597, 870361462, 817733525 Code(s): Z98.891 - HISTORY OF UTERINE SCAR FROM PREVIOUS SURGERY Status: Acute Current Visit: Yes - Problem List Review Problem List Initiated/Reviewed/Updated: Yes - My Orders Last 24 Hours: My Active Orders 11/11/20 Dinner Regular Diet [DIET] 11/11/20 17:03 Resuscitation Status Routine 11/11/20 18:12 Acetaminophen/oxyCODONE [Percocet 325-5 MG] 1 tab PO Q4H PRN Acetaminophen/oxyCODONE [Percocet 325-5 MG] 2 tab PO Q4H PRN Docusate Sodium [Colace] 100 mg PO Q12H PRN Naloxone [Narcan] 0.1 mg IVPUSH SEECOMMENT PRN diphenhydrAMINE [Benadryl] 25 mg IVPUSH Q6H PRN 11/11/20 18:12 Activity as Tolerated [RC] .Routine Antiembolic Devices [RC] PER UNIT ROUTINE Communication Order [RC] PER UNIT ROUTINE Intake and Output [RC] Q4H May Shower [RC] PER UNIT ROUTINE Notify Provider Intake and Out [RC] ASDIRECTED RT Incentive Spirometry [RC] Q2HWA Vital Signs [RC] PER UNIT ROUTINE Assess Lochia [WOMSER] Per Unit Routine Assess Uterine Involution [WOMSER] Per Unit Routine Breast Pump [WOMSER] Per Unit Routine Peripheral IV Discontinue [OM.PC] Routine Sequential Compression Device [OM.PC] Per Unit Routine 11/11/20 21:30 Ketorolac [Toradol] 30 mg IVPUSH Q6H 11/12/20 15:30 Ibuprofen [Motrin] 600 mg PO Q6H PRN 11/12/20 17:03 Urinary Catheter Removal [RC] Per Unit Routine - Assessment Assessment:: POD#1 - Plan Plan:: * Routine cares * Hb with as expected drop. Reviewed to continue PNV and iron supplement on discharge * Breast feeding * Discharge in 1-2 days
[2020-11-12] MEDS ORDERED: Ibuprofen 600 MG Tab PO PRN (12:00)
[2020-11-12] MEDS: Acetaminophen/oxyCODONE 325-5 MG Tab PO PRN ×2 (14:42→21:39)
[2020-11-12] MEDS: Ibuprofen 600 MG Tab PO PRN (17:38)
[2020-11-12] MEDS: Docusate Sodium 100 MG Cap PO PRN (21:39)
[2020-11-13] MEDS: Acetaminophen/oxyCODONE 325-5 MG Tab PO PRN ×3 (02:49→13:15)
[2020-11-13] MEDS: Ibuprofen 600 MG Tab PO PRN ×2 (07:28→14:34)
--- NOTE | 2020-11-13 10:22 | PCM.DCSUM1 ---
Discharge Summary - Hospital Course Free Text/Narrative:: [facility] Post-Op/Procedure Note Patient Name: LAMIN BURNS Date of : 89 Patient Status: Inpatient Attending Provider: Luciana Nicholas Date: 11/11/20 17:05 Initialization Date: 11/11/20 17:05 - General Post-Op/Procedure Note Date of Surgery/Procedure: 11/11/20 Operative Procedure(s): Primary low transverse Findings: Baby boy in vertex, ROP presentation. Weight of 8 lbs 3 oz. APGARS of 8 & 9. Normal appearance of the uterus, fallopian tubes, and ovaries Pre Op Diagnosis: 41 0/7 wks. Failed IOL, FTP in 1st stage Post-Op Diagnosis: Same Anesthesia Technique: Epidural Primary Surgeon: Luciana Nicholas Secondary Surgeon: Jany Hernandez Anesthesia Provider: Manolo Son Reason Sidewalk Inspector Was Necessary: Speed, safety of procedure Pathology: Cord blood collected. Placenta discarded Fluid Replacement, Intraop: 1,500 Output, Urine Amount: 100 EBL in mLs: 900 Complications: None Condition: Good Free Text/Narrative:: The risks, benefits, indications, potential complications, and alternatives were explained to the patient and informed consent obtained. After induction of anesthesia, the patient was placed in a supine position and then draped and prepped in the usual sterile manner. A Pfannenstiel incision was made and carried down through the subcutaneous tissue to the fascia. Fascial incision was made and extended transversely. The fascia was from the underlying rectus tissue superiorly and inferiorly. The peritoneum was identified and entered. Peritoneal incision was extended longitudinally. The utero-vesical peritoneal reflection was incised transversely and the bladder flap was bluntly freed from the lower uterine segment. A low transverse uterine incision was made sharply with a scalpel and extended bluntly in a cephalocaudad direction. A baby boy was delivered from a vertex presentation with APGARS as above. After the umbilical cord was clamped and cut cord blood was obtained for evaluation. The placenta was removed intact and appeared normal. The uterus was exteriorized and cleared of clots. The uterine outline, tubes and ovaries appeared normal. The uterine incision was closed with running locked sutures of 0 Vicryl. Slight bleeding noted at left angle and so additional locking sutures placed at this site. Hemostasis was obtained then with a second imbricating layer of 0 Vicryl. The uterus was then placed back into the abdomen. The infracolic gutters were cleared of blood clots. Slight oozing noted and so Fabrizio Seal placed across the hysterotomy The fascia was then reapproximated with running sutures of 0 Vicryl. The subcutaneous tissue was irrigated with sterile warm normal saline, hemostasis obtained with cautery. This layer was also closed with a running 0 Vicryl. The skin was reapproximated with running Subcuticular 4-0 Monocryl sutures and sealed with Dermabond. Instrument, sponge, and needle counts were correct prior the abdominal closure and at the conclusion of the case. HPI Initial Comments: [facility] Post-Op/Procedure Note Patient Name: LAMIN BURNS Date of : 89 Patient Status: Inpatient Attending Provider: Luciana Nicholas Date: 11/11/20 17:05 Initialization Date: 11/11/20 17:05 - General Post-Op/Procedure Note Date of Surgery/Procedure: 11/11/20 Operative Procedure(s): Primary low transverse Findings: Baby boy in vertex, ROP presentation. Weight of 8 lbs 3 oz. APGARS of 8 & 9. Normal appearance of the uterus, fallopian tubes, and ovaries Pre Op Diagnosis: 41 0/7 wks. Failed IOL, FTP in 1st stage Post-Op Diagnosis: Same Anesthesia Technique: Epidural Primary Surgeon: Luciana Nicholas Secondary Surgeon: Jany Hernandez Anesthesia Provider: Manolo Son Reason Sidewalk Inspector Was Necessary: Speed, safety of procedure Pathology: Cord blood collected. Placenta discarded Fluid Replacement, Intraop: 1,500 Output, Urine Amount: 100 EBL in mLs: 900 Complications: None Condition: Good Free Text/Narrative:: The risks, benefits, indications, potential complications, and alternatives were explained to the patient and informed consent obtained. After induction of anesthesia, the patient was placed in a supine position and then draped and prepped in the usual sterile manner. A Pfannenstiel incision was made and carried down through the subcutaneous tissue to the fascia. Fascial incision was made and extended transversely. The fascia was from the underlying rectus tissue superiorly and inferiorly. The peritoneum was identified and entered. Peritoneal incision was extended longitudinally. The utero-vesical peritoneal reflection was incised transversely and the bladder flap was bluntly freed from the lower uterine segment. A low transverse uterine incision was made sharply with a scalpel and extended bluntly in a cephalocaudad direction. A baby boy was delivered from a vertex presentation with APGARS as above. After the umbilical cord was clamped and cut cord blood was obtained for evaluation. The placenta was removed intact and appeared normal. The uterus was exteriorized and cleared of clots. The uterine outline, tubes and ovaries appeared normal. The uterine incision was closed with running locked sutures of 0 Vicryl. Slight bleeding noted at left angle and so additional locking sutures placed at this site. Hemostasis was obtained then with a second imbricating layer of 0 Vicryl. The uterus was then placed back into the abdomen. The infracolic gutters were cleared of blood clots. Slight oozing noted and so Fabrizio Seal placed across the hysterotomy The fascia was then reapproximated with running sutures of 0 Vicryl. The subcutaneous tissue was irrigated with sterile warm normal saline, hemostasis obtained with cautery. This layer was also closed with a running 0 Vicryl. The skin was reapproximated with running Subcuticular 4-0 Monocryl sutures and sealed with Dermabond. Instrument, sponge, and needle counts were correct prior the abdominal closure and at the conclusion of the case. Brief History: [facility] . Post-Op/Procedure Note. Patient Name: Omid BURNS Record Number: [id number]. Date of : [birth year]Patient Status: Inpatient. Attending Provider: Luciana Nicholas Number: [id number]. Date: 11/11/20 17:05Initialization Date: 11/11/20 17:05. - General Post-Op/Procedure Note. Date of Surgery/Procedure: 11/11/20. Opera tive Procedure(s): Primary low transverse . Findings: Baby boy in vertex, ROP presentation. Weight of 8 lbs 3 oz. APGARS of 8 & 9. Normal appearance of the uterus, fallopian tubes, and ovaries. Pre Op Diagnosis: 41 0/7 wks. Failed IOL, FTP in 1st stage. Post-Op Diagnosis: Same. Anesthesia Technique: Epidural. Primary Surgeon: Luciana Nicholas. Secondary Surgeon: Jany Hernandez. Anesthesia Provider: Manolo Son. Reason Sidewalk Inspector Was Necessary: Speed, safety of procedure. Pathology: Cord blood collected. Placenta discarded. Fluid Replacement, Intraop: 1,500. Output, Urine Amount: 100. EBL in mLs: 900. Complications: None. Condition: Good. Free Text/Narrative:: The risks, benefits, indications, potential complications, and alternatives were explained to the patient and informed consent obtained. After induction of anesthesia, the patient was placed in a supine position and then draped and prepped in the usual sterile manner. A Pfannenstiel incision was made and carried down through the subcutaneous tissue to the fascia. Fascial incision was made and extended transversely. The fascia was from the underlying rectus tissue superiorly and inferiorly. The peritoneum was identified and entered. Peritoneal incision was extended longitudinally. The utero-vesical peritoneal reflection was incised transversely and the bladder flap was bluntly freed from the lower uterine segment. A low transverse uterine incision was made sharply with a scalpel and extended bluntly in a cephalocaudad direction. A baby boy was delivered from a vertex presentation with APGARS as above. After the umbilical cord was clamped and cut cord blood was obtained for evaluation. The placenta was removed intact and appeared normal. The uterus was exteriorized and cleared of clots. The uterine outline, tubes and ovaries appeared normal. The uterine incision was closed with running locked sutures of 0 Vicryl. Slight bleeding noted at left angle and so additional locking sutures placed at this site. Hemostasis was obtained then with a second imbricating layer of 0 Vicryl. The uterus was then placed back into the abdomen. The infracolic gutters were cleared of blood clots. Slight oozing noted and so Fabrizio Seal placed across the hysterotomy. The fascia was then reapproximated with running sutures of 0 Vicryl. The subcutaneous tissue was irrigated with sterile warm normal saline, hemostasis obtained with cautery. This layer was also closed with a running 0 Vicryl. The skin was reapproximated with running Subcuticular 4-0 Monocryl sutures and sealed with Dermabond. Instrument, sponge, and needle counts were correct prior the abdominal closure and at the conclusion of the case. Diagnosis: Stroke: No - Discharge Data Discharge Date: 11/13/20 Discharge Disposition: Home, Self-Care 01 Condition: Good - Referral to Home Health Primary Care Physician: Luciana Nicholas MD - Discharge Diagnosis/Problem(s) (1) 41 weeks gestation of SNOMED Code(s): 82905299 ICD Code: Z3A.41 - 41 WEEKS GESTATION OF Status: Acute Current Visit: Yes (2) Failure to progress in first stage of labor SNOMED Code(s): 986517670 ICD Code: [id number] - Status: Acute Current Visit: Yes (3) Occiput posterior presentation of fetus SNOMED Code(s): 13474417 ICD Code: O64.0XX0 - OBSTRUCTED LABOR DUE TO INCMPL ROTATION OF HEAD, UNSP Status: Acute Current Visit: Yes Qualifiers: Fetus number: single or unspecified fetus Qualified Code(s): O64.0XX0 - Obstructed labor due to incomplete rotation of head, not applicable or unspecified (4) S/P primary low transverse SNOMED Code(s): 870225977, 29232549, 508119734, 400773386, 676511028 ICD Code: Z98.891 - HISTORY OF UTERINE SCAR FROM PREVIOUS SURGERY Status: Acute Current Visit: Yes - Patient Summary/Data Operative Procedure(s) Performed: Primary low transverse Complications: None Consults: None Hospital Course: Uneventful - Patient Instructions Diet: Usual Diet as Tolerated Driving: Do Not Drive (x2 weeks) Showering/Bathing: May Shower Notify Provider of: Fever, Increased Pain, Swelling and Redness, Drainage, Nausea and/or Vomiting - Discharge Plan *PRESCRIPTION DRUG MONITORING PROGRAM REVIEWED*: Yes *COPY OF PRESCRIPTION DRUG MONITORING REPORT IN PATIENT IOANA: Yes Home Medications: Home Meds Vits #93/Iron Fum/FA [ Formula Tablet] 1 tab PO DAILY 05/28/20 [History] Referrals: Luciana Nicholas MD [Primary Care Provider] - (patient to call and make appoint ment to see Dr. Nicholas.) - Discharge Summary/Plan Comment DC Time >30 min.: No - General Info Date of Service: 11/13/20 Functional Status: Reports: Pain Controlled - Review of Systems General: Reports: No Symptoms HEENT: Reports: No Symptoms Pulmonary: Reports: No Symptoms Cardiovascular: Reports: No Symptoms Gastrointestinal: Reports: No Symptoms Genitourinary: Reports: No Symptoms Musculoskeletal: Reports: No Symptoms Skin: Reports: No Symptoms Neurological: Reports: No Symptoms Psychiatric: Reports: No Symptoms - Patient Data Vitals - Most Recent: Last Vital Signs Temp 99.1 F 11/13/20 07:29 Pulse 104 H 11/13/20 07:29 Resp 16 11/13/20 07:29 BP 105/68 11/13/20 07:29 Pulse Ox 97 11/13/20 07:29 Weight - Most Recent: 181 lb I&O - Last 24 hours: Intake & Output 11/12/20 11/13/20 11/13/20 22:59 06:59 14:59 Output Total 1000 500 Balance -1000 -500 Med Orders - Current: Current Medications Diphenhydramine HCl (Diphenhydramine 50 Mg/Ml Sdv) 25 mg IVPUSH Q6H PRN PRN Reason: Pruritis Diphenhydramine HCl (Diphenhydramine 50 Mg/Ml Sdv) 25 mg IVPUSH Q6H PRN PRN Reason: Itching or Nausea Docusate Sodium (Docusate Sodium 100 Mg Cap) 100 mg PO Q12H PRN PRN Reason: Constipation Last Admin: 11/12/20 21:39 Dose: 100 mg Documented by: Fentanyl (Fentanyl 100 Mcg/2 Ml Sdv) 50 mcg IVPUSH Q5M PRN PRN Reason: Pain Ibuprofen (Ibuprofen 600 Mg Tab) 600 mg PO Q6H PRN PRN Reason: mild pain or fever Last Admin: 11/13/20 07:28 Dose: 600 mg Documented by: Meperidine HCl (Meperidine 50 Mg/Ml Vial) 25 mg IVPUSH ONETIME PRN PRN Reason: Shivering Naloxone HCl (Naloxone 0.4 Mg/Ml Sdv) 0.1 mg IVPUSH SEECOMMENT PRN PRN Reason: Respiratory Depression Ondansetron HCl (Ondansetron 4 Mg/2 Ml Sdv) 4 mg IVPUSH ONETIME PRN PRN Reason: Nausea/Vomiting Oxycodone/Acetaminophen (Acetaminophen/Oxycodone 325-5 Mg Tab) 1 tab PO Q4H PRN PRN Reason: Pain (moderate 4-6) Last Admin: 11/12/20 10:32 Dose: 1 tab Documented by: Oxycodone/Acetaminophen (Acetaminophen/Oxycodone 325-5 Mg Tab) 2 tab PO Q4H PRN PRN Reason: Pain (severe 7-10) Last Admin: 11/13/20 08:30 Dose: 2 tab Documented by: Discontinued Medications Cefazolin Sodium (Cefazolin 1 Gm Vial) Confirm Administered Dose 2 gm .ROUTE .STK-MED ONE Stop: 11/11/20 14:38 Citric Acid/Sodium Citrate (Citric Acid/Sodium Citrate Solution 30 Ml Cup) 30 ml PO ONETIME ONE Stop: 11/11/20 11:33 Last Admin: 11/11/20 13:56 Dose: 30 ml Documented by: Citric Acid/Sodium Citrate (Citric Acid/Sodium Citrate Solution 30 Ml Cup) Confirm Administered Dose 30 ml .ROUTE .[employer]-MED ONE Stop: 11/11/20 13:51 Last Admin: 11/11/20 14:03 Dose: Not Given Documented by: Ephedrine Sulfate (Ephedrine 50 Mg/Ml Sdv) 5 mg IVPUSH ASDIRECTED PRN PRN Reason: Hypotension Fentanyl (Fentanyl 100 Mcg/2 Ml Sdv) 100 mcg EPIDUR Q3H PRN PRN Reason: Pain Last Admin: 11/10/20 19:49 Dose: 100 mcg Documented by: Fentanyl (Fentanyl 100 Mcg/2 Ml Sdv) Confirm Administered Dose 100 mcg .ROUTE .STK-MED ONE Stop: 11/11/20 13:44 Fentanyl/Bupivacaine HCl (Bupivacaine/Fentanyl/Ns 100 Ml Bag) 100 ml EPIDUR ASDIRECTED MARIA TERESA Last Admin: 11/11/20 11:25 Dose: 100 ml Documented by: Oxytocin/Lactated Ringer's (Pitocin In Lr 10 Units/1,000 Ml) 10 unit in 1,000 mls @ 12 mls/hr IV TITRATE MARIA TERESA; Protocol Last Titration: 11/11/20 12:40 Dose: 12 munits/min, 72 mls/hr Documented by: Oxytocin/Lactated Ringer's (Pitocin In Lr 10 Units/1,000 Ml) 10 unit in 1,000 mls @ 500 mls/hr IV .CONTINUOUS [facility] Lactated Ringer's (Ringers, Lactated) 1,000 mls @ 40 mls/hr IV ASDIRECTED [facility] Last Admin: 11/11/20 04:26 Dose: 999 mls/hr Documented by: Cefazolin Sodium/Dextrose 2 gm (/ Premix) 50 mls @ 100 mls/hr IV ONETIME ONE Stop: 11/11/20 12:01 Last Admin: 11/11/20 16:02 Dose: Not Given Documented by: Azithromycin 500 mg/ Sodium (Chloride) 250 mls @ 250 mls/hr IV ONETIME ONE Stop: 11/11/20 12:31 Last Admin: 11/11/20 13:51 Dose: 250 mls/hr Documented by: Lactated Ringer's (Ringers, Lactated) Confirm Administered Dose 1,000 mls @ as directed .ROUTE .STK-MED ONE Stop: 11/11/20 14:44 Dextrose/Lactated Ringer's (Dextrose 5%-Lactated Ringers) 1,000 mls @ 125 mls/hr IV ASDIRECTED [facility] Stop: 11/12/20 02:11 Ibuprofen (Ibuprofen 600 Mg Tab) 600 mg PO Q6H PRN PRN Reason: mild pain or fever Ketorolac Tromethamine (Ketorolac 30 Mg/Ml Sdv) Confirm Administered Dose 30 mg .ROUTE .STK-MED ONE Stop: 11/11/20 15:13 Ketorolac Tromethamine (Ketorolac 30 Mg/Ml Sdv) 30 mg IVPUSH Q6H [facility] Stop: 11/12/20 09:31 Last Admin: 11/12/20 10:31 Dose: 30 mg Documented by: Lidocaine/Epinephrine (Lidocaine 1.5% With Epinephrine 1:200,000 5 Ml Amp) 5 ml .ROUTE .STK-MED ONE Stop: 11/11/20 11:01 Lidocaine/Epinephrine (Lidocaine 2% With Epinephrine 1:200,000 20 Ml Sdv) 20 ml .ROUTE .STK-MED ONE Stop: 11/11/20 11:01 Metoclopramide HCl (Metoclopramide 10 Mg/2 Ml Sdv) 10 mg IVPUSH ONETIME ONE Stop: 11/11/20 11:33 Last Admin: 11/11/20 13:56 Dose: 10 mg Documented by: Metoclopramide HCl (Metoclopramide 10 Mg/2 Ml Sdv) Confirm Administered Dose 10 mg .ROUTE .P4RC-MED ONE Stop: 11/11/20 13:51 Last Admin: 11/11/20 14:03 Dose: Not Given Documented by: Miscellaneous Medication (Phenylephrine Hcl In 0.9% Nacl 1 Mg/10 Ml Syringe) 0.1 mg IVPUSH Q10M PRN PRN Reason: Hypotension Misoprostol (Misoprostol 25 Mcg (1/4 Of 100 Mcg) Tab) 25 mcg VAG Q4H PRN PRN Reason: cervical ripening Last Admin: 11/10/20 09:02 Dose: 25 mcg Documented by: Morphine Sulfate (Morphine Pf 10 Mg/10 Ml Sdv) Confirm Administered Dose 10 mg .ROUTE .P4RC-MED ONE Stop: 11/11/20 13:44 Nalbuphine HCl (Nalbuphine 10 Mg/1 Ml Vial) 10 mg IVPUSH Q2H PRN PRN Reason: Pain Last Admin: 11/10/20 17:32 Dose: 10 mg Documented by: Ondansetron HCl (Ondansetron 4 Mg/2 Ml Sdv) 4 mg IVPUSH Q4H PRN PRN Reason: Nausea/Vomiting Ondansetron HCl (Ondansetron 4 Mg/2 Ml Sdv) 4 mg IVPUSH ONETIME PRN PRN Reason: Nausea/Vomiting Last Admin: 11/11/20 08:04 Dose: 4 mg Documented by: Ondansetron HCl (Ondansetron 4 Mg/2 Ml Sdv) Confirm Administered Dose 4 mg .ROUTE .[employer]-MED ONE Stop: 11/11/20 15:14 Oxytocin (Oxytocin 10 Units/1 Ml Sdv) Confirm Administered Dose 20 unit .ROUTE .P4RC-MED ONE Stop: 11/11/20 14:53 Sodium Chloride (Sodium Chloride 0.9% 10 Ml Syringe) 10 ml FLUSH ASDIRECTED PRN PRN Reason: Keep Vein Open Stop: 11/10/20 12:00 - Exam General: Reports: Alert, Oriented Neck: Reports: Supple Lungs: Reports: Clear to Auscultation, Normal Respiratory Effort Cardiovascular: Reports: Regular Rate, Regular Rhythm GI/Abdominal Exam: Normal Bowel Sounds, Soft Extremities: Normal Inspection, Non-Tender, No Pedal Edema, Normal Capillary Refill Skin: Reports: Warm, Dry, Intact Psy/Mental Status: Reports: Alert, Normal Affect, Normal Mood
[2020-11-13] MEDS: Docusate Sodium 100 MG Cap PO PRN (13:17)
== END 2020-11-13 15:10 | disposition home or self-care (01) | DRG 540 ==
LOC: JD.OBCHECK 07:15 → JD.OB 07:16 → OBSVTOIN 11-11 14:54 → JD.OB 11-11 14:55
PROVIDERS: ADMIT Obstetrics & Gynecology; ATTEND Obstetrics & Gynecology
PROC: 4A1HXCZ Monitoring of Products of Conception, Cardiac Rate, External Approach (ICD-10-PCS; 2020-11-10)
PROC: 10907ZC Drainage of Amniotic Fluid, Therapeutic from Products of Conception, Via Natural or Artificial Opening (ICD-10-PCS; 2020-11-10)
PROC: 3E0P7VZ Introduction of Hormone into Female Reproductive, Via Natural or Artificial Opening (ICD-10-PCS; 2020-11-10)
PROC: 3E033VJ Introduction of Other Hormone into Peripheral Vein, Percutaneous Approach (ICD-10-PCS; 2020-11-10)
PROC: 10D00Z1 Extraction of Products of Conception, Low, Open Approach (ICD-10-PCS; principal; 2020-11-11)
DX: O48.0 Post-term pregnancy (principal); Z3A.41 41 weeks gestation of pregnancy; Z37.0 Single live birth; O62.2 Other uterine inertia; O64.0XX0 Obstructed labor due to incomplete rotation of fetal head, not applicable or unspecified; O77.0 Labor and delivery complicated by meconium in amniotic fluid; Z20.822 Contact with and (suspected) exposure to COVID-19
CPT/HCPCS: 01967; 01968; 36415; 51702; 59025; 85027; 86592; 86850; 86900; 86901; 94762; A9270-GY; J0456; J0690; J1885; J2270; J2300; J2405; J2590; J2765; J3010; J7050; J7120; U0002

== ENCOUNTER 2021-05-06 10:11 | Emergency (ER) | payer BC, SELFPAY ==
--- NOTE | 2021-05-06 11:25 | EDM.PDOC ---
ED HPI GENERAL MEDICAL PROBLEM - General Chief Complaint: Abdominal Pain Stated Complaint: ABDOMINAL PAIN Time Seen by Provider: 05/06/21 11:08 Source of Information: Reports: Patient History Limitations: Reports: No Limitations - History of Present Illness INITIAL COMMENTS - FREE TEXT/NARRATIVE: 25-year-old female presents the emergency department with complaints of left upper quadrant intermittent abdominal pain. Patient states that this started about 2 months ago when she got her initial Depo Provera shot. She states that the discomfort is a dull ache to her left upper quadrant just in the epigastric area. She states that she primarily notices that it comes on in the evening and sometimes first thing in the morning. She states that when it occurs she will take ibuprofen and this does seem to help make the pain go away. She denies any history of GERD or reflux disease. She denies any smoking history. She denies any caffeine intake, spicy foods or chocolate. She is not currently having the discomfort at the time that she is seen in the emergency department. She denies any nausea or vomiting associated with the discomfort. She denies any recent fever or chills, cough, shortness of breath. She denies any urinary symptoms or any issues with constipation diarrhea. She denies any dark bowel movements. She does not take any prescription medications. - Related Data Allergies Allergy/AdvReac Type Severity Reaction Status Date / Time No Known Allergies Allergy Verified 05/06/21 10:23 Home Meds: Home Meds Ibuprofen [Motrin] 600 mg PO Q6H PRN tablet 11/13/20 [Rx] Past Medical History - Past Health History Medical/Surgical History: Denies Medical/Surgical History APPLICATION SUPPORT History: Reports: - Past Surgical History Female Surgical History: Reports: Section Social & Family History - Family History Family Medical History: No Pertinent Family History - Tobacco Use Tobacco Use Status *Q: Never Tobacco User Second Hand Smoke Exposure: No - Caffeine Use Caffeine Use: Reports: None - Recreational Drug Use Recreational Drug Use: No ED ROS GENERAL - Review of Systems Review Of Systems: Comprehensive ROS is negative, except as noted in HPI. ED EXAM, GI/ABD - Physical Exam Exam: See Below Exam Limited By: No Limitations General Appearance: Alert, WD/WN, No Apparent Distress Ears: Normal External Exam, Hearing Grossly Normal Nose: Normal Inspection Throat/Mouth: Normal Inspection, Normal Lips, Normal Voice, No Airway Compromise Head: Atraumatic Neck: Normal Inspection, Supple Respiratory/Chest: No Respiratory Distress, Lungs Clear, Normal Breath Sounds, No Accessory Muscle Use, Chest Non-Tender Cardiovascular: Normal Peripheral Pulses, Regular Rate, Rhythm, No Edema, No Murmur GI/Abdominal Exam: Normal Bowel Sounds, Soft, Non-Tender, No Distention (Female) Exam: Deferred Rectal (Female) Exam: Deferred Back Exam: Normal Inspection Extremities: Normal Inspection Neurological: Alert, Oriented, Normal Cognition Psychiatric: Normal Affect, Normal Mood Skin Exam: Warm, Dry, Intact, Normal Color, No Rash Lymphatic: No Adenopathy Course - Vital Signs Text/Narrative:: As stated above, patient presents with intermittent left upper quadrant abdominal pain primarily in the area over the stomach. At the time of my exam, the patient denied having of the discomfort. She is hemodynamically stable. And her assessment is unremarkable. Will order labs to include a CBC, CMP and a magnesium level as well as a flatplate of the abdomen. I suspect the dis comfort is due to reflux. Last Recorded V/S: Last Vital Signs Temp 97.1 F 05/06/21 10:20 Pulse 72 05/06/21 10:20 Resp 16 05/06/21 10:20 BP 122/78 05/06/21 10:20 Pulse Ox 100 05/06/21 10:20 - Orders/Labs/Meds Labs: Laboratory Tests 05/06/21 05/06/21 Range/Units 11:37 11:37 WBC 7.61 (3.98-10.04) K/mm3 RBC 4.72 (3.98-5.22) M/mm3 Hgb 14.0 D (11.2-15.7) gm/dl Hct 43.0 (34.1-44.9) % MCV 91.1 (79.4-94.8) fl MCH 29.7 (25.6-32.2) pg MCHC 32.6 (32.2-35.5) g/dl RDW Std Deviation 46.0 (36.4-46.3) fL Plt Count 214 (182-369) K/mm3 MPV 9.5 (9.4-12.3) fl Neut % (Auto) 60.1 (34.0-71.1) % Lymph % (Auto) 30.2 (19.3-51.7) % [place] % (Auto) 6.2 (4.7-12.5) % Eos % (Auto) 2.9 (0.7-5.8) Baso % (Auto) 0.3 (0.1-1.2) % Neut # (Auto) 4.58 (1.56-6.13) K/mm3 Lymph # (Auto) 2.30 (1.18-3.74) K/mm3 [place] # (Auto) 0.47 H (0.24-0.36) K/mm3 Eos # (Auto) 0.22 (0.04-0.36) K/mm3 Baso # (Auto) 0.02 (0.01-0.08) K/mm3 Sodium 138 (136-145) mEq/L Potassium 3.8 (3.5-5.1) mEq/L Chloride 106 (98-107) mEq/L Carbon Dioxide 26 (21-32) mEq/L Anion Gap 9.8 (5-15) BUN 17 (7-18) mg/dL Creatinine 0.8 (0.55-1.02) mg/dL Est Cr Clr Drug Dosing 100.63 mL/min Estimated GFR (MDRD) > 60 (>60) mL/min BUN/Creatinine Ratio 21.3 H (14-18) Glucose 67 L (70-99) mg/dL Calcium 8.8 (8.5-10.1) mg/dL Magnesium 1.9 (1.8-2.4) mg/dL Total Bilirubin 0.5 (0.2-1.0) mg/dL AST 22 (15-37) U/L ALT 32 (14-59) U/L Alkaline Phosphatase 109 (46-116) U/L Total Protein 7.8 (6.4-8.2) g/dl Albumin 3.7 (3.4-5.0) g/dl Globulin 4.1 gm/dL Albumin/Globulin Ratio 0.9 L (1-2) Meds: Medications Discontinued Medications Generic Name Dose Route Start Last Admin Trade Name Freq PRN Reason Stop Dose Admin Magnesium Citrate 296 ml 05/06/21 12:35 Magnesium Citrate Solution 296 Ml Bottle PO 05/06/21 12:36 ONETIME ONE - Re-Assessments/Exams Free Text/Narrative Re-Assessment/Exam: 05/06/21 12:34 Hematology and chemistries are unremarkable Radiologist impression supine view of the abdomen: 1. Mild increased stool within the colon. I will order for the patient to receive one half bottle of Citroma while in the emergency department. If she does not have a bowel movement within 3 hours she can drink the remaining half bottle at home. Also recommend that she takes MiraLAX daily for the next 6 weeks to get a regular bowel regimen established. Departure - Departure Time of Disposition: 12:52 Disposition: Home, Self-Care 01 Condition: Good Clinical Impression: Constipation by delayed colonic transit - Discharge Information Instructions: Constipation, Adult, [id number] Referrals: PCP,None [Primary Care Provider] - Forms: ED Department Discharge Additional Instructions: You were seen in the emergency department with intermittent left upper quadrant abdominal pain. Lab studies were completed which were all essentially unremarkable. X-ray of the abdomen was completed which did show increased stool within the colon in the left upper abdomen as well as left lower abdomen and right lower abdomen. While you are in the emergency department you were given a medication to drink called magnesium citrate. If this does not produce a bowel movement within 3 hours recommend drinking the remainder of the magnesium citrate. You should have a good bowel movement within 6 to 8 hours. Also recommend that you start taking a medication called MiraLAX daily. This medication can be purchased [id number] at [facility] or any pharmacy. Recommend you take 1 scoop daily for the next 6 weeks to promote bowel regularity and reset your bowel movements. Sepsis Event Note (ED) - Evaluation Sepsis Screening Result: No Definite Risk - Focused Exam Vital Signs: Vital Signs Temp Pulse Resp BP Pulse Ox 05/06/21 10:20 97.1 F 72 16 122/78 100
--- NOTE | 2021-05-06 12:09 | CR ---
Abdomen: Supine view of the abdomen was obtained. Comparison: No prior study. Slight increased stool is seen throughout the colon. Bowel gas pattern is otherwise unremarkable. Small calcification is seen within the pelvis most likely representing a phlebolith. Bony structures are unremarkable. Impression: 1. Mild increased stool within the colon. Diagnostic code #2
[2021-05-06] MEDS ORDERED: Magnesium Citrate Solution 296 ML Bottle PO ONE (12:35)
== END 2021-05-06 13:19 | disposition home or self-care (01) ==
LOC: JD.ED 10:11
DX: K59.01 Slow transit constipation (principal)
CPT/HCPCS: 36415; 74018; 80053; 83735; 85025; 99284; A9270; 99283

== ENCOUNTER 2021-06-18 22:46 | Emergency (ER) | payer BC, OTHER ==
--- NOTE | 2021-06-19 00:06 | EDM.PDOC ---
ED HPI GENERAL MEDICAL PROBLEM - General Chief Complaint: Gastrointestinal Problem Stated Complaint: ABD PAIN Time Seen by Provider: 06/19/21 00:06 - History of Present Illness INITIAL COMMENTS - FREE TEXT/NARRATIVE: 26-year-old female presents the emergency room with abdominal pain. The patient developed midepigastric abdominal discomfort earlier this evening. This was somewhat bothersome she had a hard time walking with it. This resolved after about 20 minutes on its own. The patient denies typical heartburn symptoms. Patient did try ibuprofen. The patient has had episodes like this in the past and its been attributed to constipation the patient has normal regular soft bowel movements. She has tried constipation treatment for this in the past and it has not helped. The patient had difficulty walking because she was hunched over with this however this is all resolved. Treatments OCCUP THER: Reports: NSAIDS Other Treatments OCCUP THER: 400 mg Ibuproen - Related Data Allergies Allergy/AdvReac Type Severity Reaction Status Date / Time No Known Allergies Allergy Verified 06/18/21 23:17 Past Medical History - Past Health History Medical/Surgical History: Denies Medical/Surgical History HEENT History: Reports: None Cardiovascular History: Reports: None Respiratory History: Reports: None Gastrointestinal History: Reports: None Genitourinary History: Reports: None [employer] History: Reports: Musculoskeletal History: Reports: None Neurological History: Reports: None Psychiatric History: Reports: None Endocrine/Metabolic History: Reports: None Hematologic History: Reports: None Immunologic History: Reports: None Oncologic (Cancer) History: Reports: None Dermatologic History: Reports: None - Past Surgical History Head Surgeries/Procedures: Reports: None Female Surgical History: Reports: Section Other Female Surgeries/Procedures: 11/11/2020 Social & Family History - Family History Family Medical History: No Pertinent Family History - Tobacco Use Tobacco Use Status *Q: Never Tobacco User Second Hand Smoke Exposure: No - Caffeine Use Caffeine Use: Reports: Soda Caffeine Use Comment: one soda per month ED ROS GENERAL - Review of Systems Review Of Systems: See Below Constitutional: Reports: No Symptoms HEENT: Reports: No Symptoms Respiratory: Reports: No Symptoms Cardiovascular: Reports: No Symptoms GI/Abdominal: Reports: Abdominal Pain. Denies: Constipation, Diarrhea : Reports: No Symptoms Musculoskeletal: Reports: No Symptoms Skin: Reports: No Symptoms Neurological: Reports: No Symptoms ED EXAM, GENERAL - Physical Exam Exam: See Below Exam Limited By: No Limitations General Appearance: Alert, No Apparent Distress Head: Atraumatic, Normocephalic Neck: Normal Inspection, Supple, Non-Tender, Full Range of Motion Respiratory/Chest: No Respiratory Distress, Lungs Clear, Normal Breath Sounds Cardiovascular: Regular Rate, Rhythm, No Edema, No Murmur GI/Abdominal: Normal Bowel Sounds, Soft, Non-Tender Back Exam: Normal Inspection. No: CVA Tenderness (L), CVA Tenderness (R) Course - Vital Signs Last Recorded V/S: Last Vital Signs Temp 36.2 C 06/18/21 23:09 Pulse 63 06/18/21 23:09 Resp 16 06/18/21 23:09 BP 136/74 06/18/21 23:09 Pulse Ox 100 06/18/21 23:09 - Re-Assessments/Exams Free Text/Narrative Re-Assessment/Exam: 06/19/21 00:22 Patient is doing well at this time. We discussed the situation and with some shared decision making discussed the pros and cons of checking lab work its been normal in the past when she has had episodes like this. The patient reveals to me that she tried some ibuprofen which in the setting of dyspepsia would make it worse so I cautioned her against using this. She does not believe she is constipated and she has regular bowel movements once or twice daily. I have recommended that she try Tums the next time this happens and she should avoid nonsteroidals or ibuprofen she voices understanding with this and would like to go home. Departure - Departure Time of Disposition: 00:23 Disposition: Home, Self-Care 01 Clinical Impression: Resolved abdominal pain - Discharge Information Referrals: Luciana Nicholas MD [Primary Care Provider] - Forms: ED Department Discharge Additional Instructions: Return to the emergency room with any questions problems or worsening symptoms. Avoid ibuprofen. Use Tylenol as needed for pain relief. supervisor lime some Tums and try this the next time this problem occurs Sepsis Event Note (ED) - Evaluation Sepsis Screening Result: No Definite Risk - Focused Exam Vital Signs: Vital Signs Temp Pulse Resp BP Pulse Ox 06/18/21 23:09 36.2 C 63 16 136/74 100
== END 2021-06-19 00:30 | disposition home or self-care (01) ==
LOC: JD.ED 22:46
DX: R10.13 Epigastric pain (principal)
CPT/HCPCS: 99283

== ENCOUNTER 2021-12-30 07:49 | Emergency (ER) | payer OTHER ==
[2021-12-30] MEDS: Sodium Chloride 0.9% 10 ML Syringe FLUSH PRN ×2 (08:20→08:37)
[2021-12-30] MEDS ORDERED: Sodium Chloride 0.9% 1,000 ML IV ONE (08:25)
[2021-12-30] MEDS ORDERED: Ondansetron 4 MG/2 ML SDV IVPUSH ONE (08:26)
[2021-12-30] MEDS ORDERED: HYDROmorphone 0.5 MG/0.5 ML Syringe IVPUSH ONE (08:26)
[2021-12-30] MEDS ORDERED: Famotidine 20 MG/2 ML SDV IVPUSH ONE (08:26)
[2021-12-30] MEDS ORDERED: Metoclopramide 10 MG/2 ML SDV IVPUSH ONE (10:37)
[2021-12-30] MEDS ORDERED: Sodium Chloride 0.9% 10 ML Syringe FLUSH PRN (11:08)
[2021-12-30] MEDS ORDERED: Iopamidol 612 MG/ML 100 ML Bottle IVPUSH ONE (11:08)
== END 2021-12-30 14:05 | disposition home or self-care (01) ==
LOC: JD.ED 07:49
DX: A08.4 Viral intestinal infection, unspecified (principal)
CPT/HCPCS: 36415; 74177; 76705; 80053; 83690; 83735; 84702; 85025; 86140; 96361; 96374; 96375; 99284; J1170; J2405; J2765; J3490; J7030; Q9967